=== PATIENT | female | born 1945 | race Caucasian/White ===

== ENCOUNTER → 2016-10-24 | Outpatient (CLI) | payer OTHER, MEDICARE | LOC: MRI 08:41 → RAD 09:00 | DX: M51.36 Other intervertebral disc degeneration, lumbar region (principal); R53.1 Weakness | CPT/HCPCS: 72156; 72157; 72158 ==

== ENCOUNTER 2016-12-02 14:21 | Inpatient (IN) | payer OTHER, MEDICARE ==
[~2016-12-02] VITALS: Ht 167.6 cm; Wt 105.0 kg
[~2016-12-02 14:21] MED LIST: CARDIZEM CD,CA240 MG PO; DULCOLAX10 MG PR; ELIQUIS5 MG PO; GERI-LANTA LIQ355 ML PO; GLUCOPHAGE500 MG PO; LANTUS 3 M100 UNITS1 SC; LASIX20 MG PO; LIPITOR20 MG PO; LO-DOSE ASPIRIN81 M2 PO; MAGNESIUM400 M1 PO; MECLIZINE HCL25 MG PO; METOPROLOL TART25 MG PO; MILK OF MAGN PO; NEURONTIN100 MG PO; PRILOSEC20 MG PO; SENNA8.6 MG PO; TYLENOL REGULA325 MG PO; VOLTAREN 1% GE100 GM TP
[2016-12-02 16:10] LABS: HEMATOCRIT 34.2 % (36.0-46.0); MCH 29.3 PG (29.0-34.0); MCHC 34.2 G/DL (30.0-36.0); MCV 85.7 FL (83-99); MEAN PLAT.VOLUME 10.3 uM^3 (9.5-12.4); PLATELET COUNT 276 K/uL (156-360); RBC DIS.WIDTH-SD 40.4 % (39-53); RED BLOOD COUNT 3.99 M/uL (3.80-5.20); WHITE BLOOD COUNT 8.2 K/uL (4.1-10.2)
[2016-12-02 16:19] LABS: CHLORIDE 94 mEq/L (99-109); POTASSIUM 4.3 mEq/L (3.7-5.4); SODIUM 133 mEq/L (136-147)
[2016-12-02 16:21] LABS: GLUCOSE 107 mg/dL (70-99)
[2016-12-02 16:23] LABS: ANION GAP 17 MEQ/L (2-14); TOTAL BILIRUBIN 0.3 mg/dL (0.0-1.0)
[2016-12-02 16:25] LABS: ALKALINE PHOSPHATASE 75 IU/L (3-129); GFR ESTIMATE (CALCULATED) 9 mL/min/
[2016-12-02 16:26] LABS: UREA NITROGEN (BUN) 64 mg/dL (9-23)
[2016-12-02] MEDS ORDERED: NEURONTIN100 MG PO (17:57)
[2016-12-02] MEDS ORDERED: KAYEXALATE15 GM/60 M PO (18:02)
[2016-12-02] MEDS ORDERED: MILK OF MAGN PO (18:07)
[2016-12-02] MEDS ORDERED: FLEET ENEMA-AD118 ML PR (18:09)
[2016-12-02 20:21] VITALS: BP 139/71
[2016-12-02 23:57] VITALS: BP 147/78
[2016-12-03 01:47] LABS: ADD MIUA? YES; BILIRUBIN NEGATIVE; BLOOD SMALL; COLOR STRAW ((YELLOW)); GLUCOSE (STRIP) 50; KETONES NEGATIVE; LEUKOCYTES NEGATIVE; NITRITE NEGATIVE; PROTEIN (STRIP) 30; SPECIFIC GRAVITY 1.008 (1.000-1.030); UROBILINOGEN 0.2 MG/DL (0.2-1.0)
[2016-12-03 01:49] LABS: BACTERIA NONE SEEN /HPF; EPITHELIAL CELLS RARE /HPF; MUCUS TRACE /LPF; RED BLOOD CELLS 0-5 /HPF (0-5); UCUL ADDED? NO; WHITE BLOOD CELLS 0-5 /HPF (0-5)
[2016-12-03 04:00] VITALS: BP 139/82
[2016-12-03 04:07] LABS: POINT-OF-CARE METER ID UU14174225
[2016-12-03 06:24] LABS: HEMATOCRIT 33.8 % (36.0-46.0); MCH 29.3 PG (29.0-34.0); MCHC 33.4 G/DL (30.0-36.0); MCV 87.6 FL (83-99); MEAN PLAT.VOLUME 10.3 uM^3 (9.5-12.4); PLATELET COUNT 234 K/uL (156-360); RBC DIS.WIDTH-CV 13.1 % (11.8-14.6); RBC DIS.WIDTH-SD 42.2 % (39-53); RED BLOOD COUNT 3.86 M/uL (3.80-5.20); WHITE BLOOD COUNT 8.4 K/uL (4.1-10.2)
[2016-12-03 06:46] LABS: ALKALINE PHOSPHATASE 60 IU/L (3-129); ANION GAP 12 MEQ/L (2-14); CHLORIDE 95 MEQ/L (99-109); GFR ESTIMATE (CALCULATED) 10 mL/min/; GLUCOSE 96 mg/dL (70-99); POTASSIUM 3.4 MEQ/L (3.7-5.4); SAMPLE HEMOLYSIS CHECK 0; SAMPLE ICTERIC CHECK 0; SAMPLE LIPEMIA CHECK 0; SODIUM 135 MEQ/L (136-147); TOTAL BILIRUBIN 0.3 MG/DL (0.0-1.0); UREA NITROGEN (BUN) 60 mg/dL (9-23)
[2016-12-03 07:35] VITALS: BP 102/52
[2016-12-03 07:53] LABS: POINT-OF-CARE METER ID UU14174225
[2016-12-03 11:08] VITALS: BP 131/57
[2016-12-03 15:36] VITALS: BP 100/56
[2016-12-03 20:05] VITALS: BP 145/69
[2016-12-03 20:07] LABS: INTERNAL CONTROL VALID? YES
[2016-12-03 20:41] LABS: C DIFF TOXIN NEGATIVE (NEGATIVE)
[2016-12-03 20:50] LABS: PROBE CHECK PASS; SPECIMEN PROCESSING CONTROL PASS
[2016-12-03 23:31] LABS: POINT-OF-CARE USER ID BHSKTD
[2016-12-04 00:14] VITALS: BP 156/73
[2016-12-04 03:31] VITALS: BP 121/59
[2016-12-04 06:43] LABS: EOSINOPHIL (%) 1.2 % (0-5); EOSINOPHIL COUNT 0.1 K/uL (0-0.3); HEMATOCRIT 33.6 % (36.0-46.0); IMMATURE GRANULOCYTE (%) 0.1 % (0.0-0.7); LYMPHOCYTE COUNT 2.3 K/uL (1.0-2.8); MCH 29.1 PG (29.0-34.0); MCHC 33.3 G/DL (30.0-36.0); MCV 87.3 FL (83-99); MEAN PLAT.VOLUME 10.5 uM^3 (9.5-12.4); MONOCYTE (%) 6.5 % (3-12); MONOCYTE COUNT 0.5 K/uL (0-0.8); NEUTROPHIL (%) 58.6 % (45-76); PLATELET COUNT 200 K/uL (156-360); RBC DIS.WIDTH-SD 41.2 % (39-53); RED BLOOD COUNT 3.85 M/uL (3.80-5.20); WHITE BLOOD COUNT 6.9 K/uL (4.1-10.2)
[2016-12-04 07:17] LABS: ANION GAP 10 MEQ/L (2-14); CHLORIDE 97 MEQ/L (99-109); GFR ESTIMATE (CALCULATED) 14 mL/min/; GLUCOSE 111 mg/dL (70-99); POTASSIUM 3.2 MEQ/L (3.7-5.4); SAMPLE HEMOLYSIS CHECK 0; SAMPLE ICTERIC CHECK 0; SAMPLE LIPEMIA CHECK 0; SODIUM 138 MEQ/L (136-147); UREA NITROGEN (BUN) 52 mg/dL (9-23)
[2016-12-04 07:59] VITALS: BP 124/64
[2016-12-04 11:02] VITALS: BP 128/70
[2016-12-04 12:55] LABS: POINT-OF-CARE METER ID UU14174225
[2016-12-04 15:00] VITALS: BP 150/64
[2016-12-04 16:45] LABS: POINT-OF-CARE METER ID UU14174225
[2016-12-04 19:57] VITALS: BP 159/65
[2016-12-05 04:00] VITALS: BP 140/73
[2016-12-05 06:58] LABS: EOSINOPHIL (%) 1.5 % (0-5); EOSINOPHIL COUNT 0.1 K/uL (0-0.3); HEMATOCRIT 35.3 % (36.0-46.0); IMMATURE GRANULOCYTE (%) 0.2 % (0.0-0.7); INSTRUMENT ABS NEUTROPHIL CT 3.4 K/uL; LYMPHOCYTE COUNT 2.2 K/uL (1.0-2.8); MCH 29.2 PG (29.0-34.0); MCHC 33.7 G/DL (30.0-36.0); MCV 86.7 FL (83-99); MEAN PLAT.VOLUME 10.8 uM^3 (9.5-12.4); MONOCYTE (%) 7.4 % (3-12); MONOCYTE COUNT 0.5 K/uL (0-0.8); NEUTROPHIL (%) 54.3 % (45-76); NEUTROPHIL COUNT 3.4 K/uL (1.8-6.4); PLATELET COUNT 186 K/uL (156-360); RBC DIS.WIDTH-CV 12.8 % (11.8-14.6); RBC DIS.WIDTH-SD 40.4 % (39-53); RED BLOOD COUNT 4.07 M/uL (3.80-5.20); WHITE BLOOD COUNT 6.2 K/uL (4.1-10.2)
[2016-12-05 07:23] LABS: POINT-OF-CARE METER ID UU14174225; POINT-OF-CARE USER ID BHSTSA
[2016-12-05 07:49] VITALS: BP 148/64
[2016-12-05 08:46] LABS: CHLORIDE 99 mEq/L (99-109); POTASSIUM 3.1 mEq/L (3.7-5.4); SODIUM 139 mEq/L (136-147)
[2016-12-05 08:48] LABS: GLUCOSE 111 mg/dL (70-99)
[2016-12-05 08:50] LABS: ANION GAP 12 MEQ/L (2-14)
[2016-12-05 08:52] LABS: GFR ESTIMATE (CALCULATED) 25 mL/min/
[2016-12-05 08:53] LABS: UREA NITROGEN (BUN) 40 mg/dL (9-23)
[2016-12-05 10:44] VITALS: BP 146/62
[2016-12-05 14:40] VITALS: BP 126/69
[2016-12-05 16:19] LABS: POINT-OF-CARE METER ID UU14174225
== END 2016-12-05 17:25 | DRG 683 ==
LOC: EME → EDBD 14:21 → EME 14:21 → EDOF 18:19 → 5SOUTH 18:19
PROVIDERS: Emergency Medicine; Internal Medicine; Internal Medicine Nephrology
DX: N17.9 Acute kidney failure, unspecified (principal); K21.9 Gastro-esophageal reflux disease without esophagitis; E11.9 Type 2 diabetes mellitus without complications; I48.2 Chronic atrial fibrillation; E87.5 Hyperkalemia; A08.4 Viral intestinal infection, unspecified; E87.6 Hypokalemia; R09.02 Hypoxemia; J90 Pleural effusion, not elsewhere classified; J98.11 Atelectasis; I48.0 Paroxysmal atrial fibrillation; E78.5 Hyperlipidemia, unspecified; I10 Essential (primary) hypertension; Z79.4 Long term (current) use of insulin; G61.81 Chronic inflammatory demyelinating polyneuritis; L89.321 Pressure ulcer of left buttock, stage 1; E70.331 Hermansky-Pudlak syndrome; Z79.82 Long term (current) use of aspirin; I50.9 Heart failure, unspecified; E66.9 Obesity, unspecified; Z68.37 Body mass index [BMI] 37.0-37.9, adult; Z87.891 Personal history of nicotine dependence; Z66 Do not resuscitate
CPT/HCPCS: 71010; 71250; 74176; 76770; 80053; 80069; 81003; 82948; 83630; 84132 91; 85025; 85027; 87040; 87177; 87493; 93005; 94799; 99281; 99285; J1815; J7030

== ENCOUNTER 2016-12-24 12:59 | Day surgery (SDC) | payer OTHER, MEDICARE ==
[~2016-12-24] VITALS: Ht 167.6 cm; Wt 98.9 kg
[~2016-12-24 12:59] MED LIST changes: +FLEET ENEMA-AD118 ML PR; +KAYEXALATE15 GM/60 M PO; +SENNA LAXATIVE8.6 MG PO
[2016-12-24 14:00] LABS: POINT-OF-CARE METER ID UU14174212
[2016-12-24 14:10] VITALS: BP 174/80
[2016-12-24 14:32] LABS: METH RESISTANT S AUREUS PCR POSITIVE (NEGATIVE)
[2016-12-24 14:34] LABS: PROBE CHECK PASS
[2016-12-24] MEDS ORDERED: NORCO 5/3251 TABLET PO (17:15)
[2016-12-24 18:19] VITALS: BP 137/67
== END 2016-12-24 19:29 ==
LOC: SDC 12:59
PROVIDERS: Surgery
DX: I87.8 Other specified disorders of veins (principal)
CPT/HCPCS: 71010; 82948; 87641; C1751; J0690; J2405; J3010

== ENCOUNTER 2017-02-07 16:40 | Inpatient (IN) | payer OTHER, MEDICARE ==
[~2017-02-07] VITALS: Ht 167.6 cm; Wt 97.1 kg
[~2017-02-07 16:40] MED LIST changes: +NORCO 5/3251 TABLET PO
[2017-02-07 18:00] LABS: EOSINOPHIL (%) 1.6 % (0-5); EOSINOPHIL COUNT 0.1 K/uL (0-0.3); HEMATOCRIT 37.6 % (36.0-46.0); IMMATURE GRANULOCYTE (%) 0.3 % (0.0-0.7); INSTRUMENT ABS NEUTROPHIL CT 3.7 K/uL; LYMPHOCYTE COUNT 1.4 K/uL (1.0-2.8); MCH 28.6 PG (29.0-34.0); MCHC 33.2 G/DL (30.0-36.0); MEAN PLAT.VOLUME 11.3 uM^3 (9.5-12.4); MONOCYTE (%) 8.7 % (3-12); MONOCYTE COUNT 0.5 K/uL (0-0.8); NEUTROPHIL COUNT 3.7 K/uL (1.8-6.4); PLATELET COUNT 149 K/uL (156-360); RBC DIS.WIDTH-CV 14.5 % (11.8-14.6); RBC DIS.WIDTH-SD 45.4 % (39-53); RED BLOOD COUNT 4.37 M/uL (3.80-5.20); WHITE BLOOD COUNT 5.7 K/uL (4.1-10.2)
[2017-02-07 18:08] LABS: CHLORIDE 102 mEq/L (99-109); SODIUM 140 mEq/L (136-147)
[2017-02-07 18:09] LABS: GLUCOSE 112 mg/dL (70-99)
[2017-02-07 18:11] LABS: ANION GAP 7 MEQ/L (2-14)
[2017-02-07 18:13] LABS: GFR ESTIMATE (CALCULATED) > 59 mL/min/
[2017-02-07 18:14] LABS: UREA NITROGEN (BUN) 16 mg/dL (9-23)
[2017-02-07] MEDS ORDERED: HYDROCODON-ACE1 EAC7 PO (20:39)
[2017-02-07 22:55] VITALS: BP 173/83
[2017-02-08 00:01] LABS: POINT-OF-CARE METER ID UU14162508
[2017-02-08 04:00] VITALS: BP 163/72
[2017-02-08 06:49] LABS: POINT-OF-CARE METER ID UU14162508
[2017-02-08 06:53] LABS: EOSINOPHIL (%) 2.5 % (0-5); EOSINOPHIL COUNT 0.1 K/uL (0-0.3); HEMATOCRIT 35.6 % (36.0-46.0); IMMATURE GRANULOCYTE (%) 0.2 % (0.0-0.7); INSTRUMENT ABS NEUTROPHIL CT 3.4 K/uL; LYMPHOCYTE COUNT 1.3 K/uL (1.0-2.8); MCH 29.4 PG (29.0-34.0); MCHC 34.3 G/DL (30.0-36.0); MCV 85.8 FL (83-99); MEAN PLAT.VOLUME 11.2 uM^3 (9.5-12.4); MONOCYTE (%) 6.2 % (3-12); MONOCYTE COUNT 0.3 K/uL (0-0.8); NEUTROPHIL (%) 65.2 % (45-76); NEUTROPHIL COUNT 3.4 K/uL (1.8-6.4); PLATELET COUNT 146 K/uL (156-360); RBC DIS.WIDTH-CV 14.5 % (11.8-14.6); RBC DIS.WIDTH-SD 45.8 % (39-53); RED BLOOD COUNT 4.15 M/uL (3.80-5.20); WHITE BLOOD COUNT 5.1 K/uL (4.1-10.2)
[2017-02-08 07:10] VITALS: BP 143/71
[2017-02-08 07:15] LABS: ANION GAP 7 MEQ/L (2-14); CHLORIDE 103 MEQ/L (99-109); GFR ESTIMATE (CALCULATED) > 59 mL/min/; GLUCOSE 107 mg/dL (70-99); POTASSIUM 3.7 MEQ/L (3.7-5.4); SAMPLE HEMOLYSIS CHECK 0; SAMPLE ICTERIC CHECK 0; SAMPLE LIPEMIA CHECK 0; SODIUM 140 MEQ/L (136-147); UREA NITROGEN (BUN) 14 mg/dL (9-23)
[2017-02-08 09:07] LABS: METH RESISTANT S AUREUS PCR POSITIVE (NEGATIVE)
[2017-02-08 09:15] LABS: PROBE CHECK PASS
[2017-02-08 11:40] VITALS: BP 134/69
[2017-02-08 16:00] VITALS: BP 136/69
[2017-02-08 21:58] LABS: POINT-OF-CARE METER ID UU13113747
[2017-02-09 00:28] VITALS: BP 142/68
[2017-02-09 07:00] LABS: ANION GAP 9 MEQ/L (2-14); CHLORIDE 102 MEQ/L (99-109); POTASSIUM 3.7 MEQ/L (3.7-5.4); SAMPLE HEMOLYSIS CHECK 0; SAMPLE ICTERIC CHECK 0; SAMPLE LIPEMIA CHECK 0; SODIUM 138 MEQ/L (136-147)
[2017-02-09 07:05] LABS: GFR ESTIMATE (CALCULATED) > 59 mL/min/; GLUCOSE 129 mg/dL (70-99); UREA NITROGEN (BUN) 12 mg/dL (9-23)
[2017-02-09 07:25] VITALS: BP 146/60
[2017-02-09 07:44] LABS: HEMATOCRIT 34.8 % (36.0-46.0); MCH 29.6 PG (29.0-34.0); MCHC 34.8 G/DL (30.0-36.0); MCV 85.1 FL (83-99); MEAN PLAT.VOLUME 11.2 uM^3 (9.5-12.4); PLATELET COUNT 171 K/uL (156-360); RBC DIS.WIDTH-CV 14.4 % (11.8-14.6); RBC DIS.WIDTH-SD 44.8 % (39-53); RED BLOOD COUNT 4.09 M/uL (3.80-5.20); WHITE BLOOD COUNT 4.7 K/uL (4.1-10.2)
[2017-02-09 16:16] VITALS: BP 180/76
[2017-02-09 21:24] LABS: POINT-OF-CARE METER ID UU14162508
[2017-02-10 00:14] VITALS: BP 140/62
[2017-02-10 03:49] VITALS: BP 119/60
[2017-02-10 06:34] LABS: POINT-OF-CARE METER ID UU14162508
[2017-02-10 07:30] VITALS: BP 131/75
[2017-02-10 16:08] VITALS: BP 143/72
[2017-02-10 21:34] LABS: POINT-OF-CARE METER ID UU14162508
[2017-02-11 00:30] VITALS: BP 140/64
[2017-02-11 07:31] VITALS: BP 164/85
[2017-02-11 07:53] LABS: POINT-OF-CARE METER ID UU14162508
[2017-02-11] MEDS ORDERED: MUPIROCIN15 GM TP (14:02)
== END 2017-02-11 16:07 | disposition home or self-care (01) | DRG 603 ==
LOC: EME → EDBD 16:40 → 2EAST 20:46 → EDOF 20:46 → 2EAST 22:36
PROVIDERS: Hospitalist; Internal Medicine
DX: L03.115 Cellulitis of right lower limb (principal); M86.9 Osteomyelitis, unspecified; L97.519 Non-pressure chronic ulcer of other part of right foot with unspecified severity; E11.621 Type 2 diabetes mellitus with foot ulcer; E11.40 Type 2 diabetes mellitus with diabetic neuropathy, unspecified; E11.69 Type 2 diabetes mellitus with other specified complication; E66.9 Obesity, unspecified; M25.561 Pain in right knee; I10 Essential (primary) hypertension; K21.9 Gastro-esophageal reflux disease without esophagitis; I48.0 Paroxysmal atrial fibrillation; G61.81 Chronic inflammatory demyelinating polyneuritis; Z87.891 Personal history of nicotine dependence; Z88.6 Allergy status to analgesic agent; Z79.01 Long term (current) use of anticoagulants; Z74.01 Bed confinement status; Z68.34 Body mass index [BMI] 34.0-34.9, adult; Z22.322 Carrier or suspected carrier of Methicillin resistant Staphylococcus aureus; Z99.3 Dependence on wheelchair; Z79.4 Long term (current) use of insulin
CPT/HCPCS: 73630; 73718; 80048; 80202; 82948; 85025; 85027; 85651; 86140; 87040; 87070; 87075; 87077; 87147; 87186; 87205; 87641; 93971; 99281; 99285; J0690; J2543; J3370; J7050

== ENCOUNTER 2017-05-14 12:00 | Inpatient (IN) | payer OTHER, MEDICARE ==
[~2017-05-14] VITALS: Ht 167.6 cm; Wt 90.2 kg
[~2017-05-14 12:00] MED LIST changes: -CARDIZEM CD,CA240 MG PO; +CARTIA XT240 MG PO; +HYDROCODON-ACE1 EAC7 PO; -LANTUS 3 M100 UNITS1 SC; +MUPIROCIN15 GM TP
[2017-05-14 12:36] LABS: EOSINOPHIL (%) 0.6 % (0-5); HEMATOCRIT 43.3 % (36.0-46.0); IMMATURE GRANULOCYTE (%) 0.3 % (0.0-0.7); INSTRUMENT ABS NEUTROPHIL CT 5.1 K/uL; LYMPHOCYTE COUNT 1.1 K/uL (1.0-2.8); MCHC 33.7 G/DL (30.0-36.0); MCV 85.9 FL (83-99); MONOCYTE COUNT 0.3 K/uL (0-0.8); NEUTROPHIL (%) 76.9 % (45-76); NEUTROPHIL COUNT 5.1 K/uL (1.8-6.4); PLATELET COUNT 160 K/uL (156-360); RBC DIS.WIDTH-CV 14.5 % (11.8-14.6); RBC DIS.WIDTH-SD 45.8 % (39-53); RED BLOOD COUNT 5.04 M/uL (3.80-5.20); WHITE BLOOD COUNT 6.6 K/uL (4.1-10.2)
[2017-05-14 12:53] LABS: CHLORIDE 96 mEq/L (99-109); MAGNESIUM 1.3 mg/dL (1.3-2.7); POTASSIUM 4.4 mEq/L (3.7-5.4); SODIUM 136 mEq/L (136-147)
[2017-05-14 12:55] LABS: BASE EXCESS 4.5 mEq/L (-3 to +3); BICARBONATE 33.7 mEq/L (22-26); CARBOXY HGB 2.8 % (0-5); METHEMOGLOBIN 1.2 % (0-1.5); PCO2 70 mm Hg (35-45); PO2 79 mm Hg (80-100); pH 7.29 (7.35-7.45)
[2017-05-14 12:55] LABS: GLUCOSE 157 mg/dL (70-99)
[2017-05-14 12:56] LABS: ANION GAP 12 MEQ/L (2-14)
[2017-05-14 12:56] LABS: SITE LB
[2017-05-14 12:57] LABS: COMMENTS - BLOOD GASES C+; DEVICE CANNULA; O2 FLOW 5 L/MIN; TOTAL RESP RATE 21 resp/min
[2017-05-14 12:57] LABS: TOTAL BILIRUBIN 0.3 mg/dL (0.0-1.0); TROP-I INTERPRETATION NEGATIVE; TROPONIN-I < 0.01 ng/mL (0.0-0.30)
[2017-05-14 12:59] LABS: ALKALINE PHOSPHATASE 111 IU/L (3-129); GFR ESTIMATE (CALCULATED) > 59 mL/min/
[2017-05-14 13:00] LABS: UREA NITROGEN (BUN) 18 mg/dL (9-23)
[2017-05-14 13:02] LABS: CREATINE KINASE 40 IU/L (1-294); TOTAL CK 40 IU/L (1-294)
[2017-05-14 13:08] LABS: CK-MB 1.6 ng/mL (0.0-4.9)
[2017-05-14 18:16] LABS: BASE EXCESS 6.4 mEq/L (-3 to +3); BICARBONATE 33.9 mEq/L (22-26); CARBOXY HGB 2.3 % (0-5); METHEMOGLOBIN 1.2 % (0-1.5); pH 7.36 (7.35-7.45)
[2017-05-14 18:17] LABS: COMMENTS - BLOOD GASES A+C+; FI02 21 %; PCO2 60 mm Hg (35-45); PO2 48 mm Hg (80-100); SITE RR
[2017-05-14 21:40] VITALS: BP 138/66
[2017-05-14 22:25] LABS: POINT-OF-CARE METER ID UU14174216
[2017-05-15] VITALS (7 sets, daily range): BP systolic 117–156; BP diastolic 59–78
[2017-05-15 05:18] LABS: HEMATOCRIT 40.2 % (36.0-46.0); MCH 29.4 PG (29.0-34.0); MCHC 33.8 G/DL (30.0-36.0); MEAN PLAT.VOLUME 11.3 uM^3 (9.5-12.4); PLATELET COUNT 179 K/uL (156-360); RBC DIS.WIDTH-CV 14.6 % (11.8-14.6); RBC DIS.WIDTH-SD 46.7 % (39-53); RED BLOOD COUNT 4.62 M/uL (3.80-5.20); WHITE BLOOD COUNT 9.6 K/uL (4.1-10.2)
[2017-05-15 05:40] LABS: ALKALINE PHOSPHATASE 88 IU/L (3-129); ANION GAP 7 MEQ/L (2-14); CHLORIDE 95 MEQ/L (99-109); GFR ESTIMATE (CALCULATED) > 59 mL/min/; GLUCOSE 156 mg/dL (70-99); POTASSIUM 4.2 MEQ/L (3.7-5.4); SAMPLE HEMOLYSIS CHECK 0; SAMPLE ICTERIC CHECK 0; SAMPLE LIPEMIA CHECK 0; SODIUM 134 MEQ/L (136-147); TOTAL BILIRUBIN 0.3 MG/DL (0.0-1.0); UREA NITROGEN (BUN) 20 mg/dL (9-23)
[2017-05-15 09:45] LABS: POINT-OF-CARE METER ID UU14174216
[2017-05-15 11:29] LABS: POINT-OF-CARE METER ID UU14174216
[2017-05-15] MEDS ORDERED: CERAVE453 GM TP (12:13)
[2017-05-15] MEDS ORDERED: CALMOSEPTINE O120 GM TP (12:14)
[2017-05-15] MEDS ORDERED: LANTUS 3 M100 UNITS1 SC (13:50)
[2017-05-15 16:23] LABS: POINT-OF-CARE METER ID UU14174216
[2017-05-16 04:09] VITALS: BP 132/64
[2017-05-16 07:12] VITALS: BP 140/75
[2017-05-16 09:38] LABS: HEMATOCRIT 38.9 % (36.0-46.0); MCH 30.3 PG (29.0-34.0); MCHC 34.7 G/DL (30.0-36.0); MCV 87.2 FL (83-99); MEAN PLAT.VOLUME 11.1 uM^3 (9.5-12.4); PLATELET COUNT 179 K/uL (156-360); RBC DIS.WIDTH-CV 15.1 % (11.8-14.6); RBC DIS.WIDTH-SD 48.4 % (39-53); RED BLOOD COUNT 4.46 M/uL (3.80-5.20); WHITE BLOOD COUNT 13.4 K/uL (4.1-10.2)
[2017-05-16 10:03] LABS: ANION GAP 8 MEQ/L (2-14); CHLORIDE 94 MEQ/L (99-109); GFR ESTIMATE (CALCULATED) > 59 mL/min/; SAMPLE HEMOLYSIS CHECK 1; SAMPLE ICTERIC CHECK 0; SAMPLE LIPEMIA CHECK 0; SODIUM 132 MEQ/L (136-147); UREA NITROGEN (BUN) 26 mg/dL (9-23)
[2017-05-16 10:04] LABS: GLUCOSE 252 mg/dL (70-99); POTASSIUM 5.1 MEQ/L (3.7-5.4)
[2017-05-16 11:15] VITALS: BP 132/61
[2017-05-16 11:34] LABS: POINT-OF-CARE METER ID UU13113698
[2017-05-16 15:44] VITALS: BP 131/74
[2017-05-16 16:20] LABS: POINT-OF-CARE METER ID UU13113698
[2017-05-16 20:44] LABS: POINT-OF-CARE METER ID UU14174216
[2017-05-16 20:50] VITALS: BP 152/72
[2017-05-16 23:48] VITALS: BP 132/61
[2017-05-17 04:27] VITALS: BP 132/79
[2017-05-17 05:44] LABS: HEMATOCRIT 40.1 % (36.0-46.0); MCH 30.5 PG (29.0-34.0); MCHC 34.7 G/DL (30.0-36.0); MCV 87.9 FL (83-99); MEAN PLAT.VOLUME 11.7 uM^3 (9.5-12.4); PLATELET COUNT 202 K/uL (156-360); RBC DIS.WIDTH-CV 14.7 % (11.8-14.6); RBC DIS.WIDTH-SD 47.5 % (39-53); RED BLOOD COUNT 4.56 M/uL (3.80-5.20)
[2017-05-17 06:08] LABS: ANION GAP 9 MEQ/L (2-14); CHLORIDE 95 MEQ/L (99-109); GFR ESTIMATE (CALCULATED) > 59 mL/min/; GLUCOSE 202 mg/dL (70-99); POTASSIUM 4.8 MEQ/L (3.7-5.4); SAMPLE HEMOLYSIS CHECK 0; SAMPLE ICTERIC CHECK 0; SAMPLE LIPEMIA CHECK 0; SODIUM 133 MEQ/L (136-147); UREA NITROGEN (BUN) 35 mg/dL (9-23)
[2017-05-17 07:02] VITALS: BP 138/85
[2017-05-17 07:56] LABS: POINT-OF-CARE METER ID UU14314088
[2017-05-17 10:37] LABS: INTERNAL CONTROL VALID? YES
[2017-05-17 11:28] VITALS: BP 134/97
[2017-05-17 11:52] LABS: POINT-OF-CARE METER ID UU13113698
[2017-05-17 15:51] VITALS: BP 135/71
[2017-05-17 15:53] LABS: POINT-OF-CARE METER ID UU14208750
[2017-05-17 19:25] VITALS: BP 162/83
[2017-05-17 21:49] LABS: POINT-OF-CARE METER ID UU14314084
[2017-05-17 23:45] VITALS: BP 131/75
[2017-05-18 04:51] VITALS: BP 137/70
[2017-05-18 06:40] LABS: POINT-OF-CARE METER ID UU14314084
[2017-05-18 07:54] VITALS: BP 147/67
[2017-05-18 11:32] LABS: POINT-OF-CARE METER ID UU14208750
[2017-05-18 11:46] VITALS: BP 151/67
[2017-05-18 15:43] LABS: POINT-OF-CARE METER ID UU14208750
[2017-05-18 15:44] VITALS: BP 131/67
[2017-05-18 21:38] LABS: POINT-OF-CARE METER ID UU14314084
[2017-05-19 00:30] VITALS: BP 157/83
[2017-05-19 06:31] LABS: INTER. NORMALIZED RATIO 1.2; PROTHROMBIN TIME 13.1 SEC (10.2-12.9)
[2017-05-19 06:34] LABS: PTT 30.9 SEC (25-37)
[2017-05-19 07:04] VITALS: BP 167/104
[2017-05-19 07:32] LABS: POINT-OF-CARE METER ID UU14208750; POINT-OF-CARE USER ID PUTDRM
[2017-05-19 11:15] VITALS: BP 176/100
[2017-05-19 12:40] LABS: POINT-OF-CARE METER ID UU14314084; POINT-OF-CARE USER ID PUTDRM
[2017-05-19 15:23] VITALS: BP 165/77
[2017-05-19 16:23] LABS: POINT-OF-CARE METER ID UU14208750; POINT-OF-CARE USER ID PUTDRM
[2017-05-19 22:23] LABS: POINT-OF-CARE METER ID UU14314084
[2017-05-19 23:00] VITALS: BP 166/95
[2017-05-20 06:18] LABS: POINT-OF-CARE METER ID UU14208750
[2017-05-20 07:05] VITALS: BP 156/72
[2017-05-20 11:00] VITALS: BP 152/68
[2017-05-20 11:06] LABS: HEMATOCRIT 45.7 % (36.0-46.0); MCH 30.1 PG (29.0-34.0); MCHC 34.1 G/DL (30.0-36.0); MCV 88.2 FL (83-99); MEAN PLAT.VOLUME 9.9 uM^3 (9.5-12.4); PLATELET COUNT 233 K/uL (156-360); RBC DIS.WIDTH-CV 14.3 % (11.8-14.6); RBC DIS.WIDTH-SD 46.2 % (39-53); RED BLOOD COUNT 5.18 M/uL (3.80-5.20); WHITE BLOOD COUNT 16.7 K/uL (4.1-10.2)
[2017-05-20 11:33] LABS: ALKALINE PHOSPHATASE 81 IU/L (3-129); ANION GAP 6 MEQ/L (2-14); CHLORIDE 96 MEQ/L (99-109); GFR ESTIMATE (CALCULATED) > 59 mL/min/; GLUCOSE 67 mg/dL (70-99); POTASSIUM 4.4 MEQ/L (3.7-5.4); SAMPLE HEMOLYSIS CHECK 0; SAMPLE ICTERIC CHECK 0; SAMPLE LIPEMIA CHECK 0; SODIUM 138 MEQ/L (136-147); TOTAL BILIRUBIN 0.3 MG/DL (0.0-1.0); UREA NITROGEN (BUN) 25 mg/dL (9-23)
[2017-05-20 12:22] LABS: POINT-OF-CARE METER ID UU14314084
[2017-05-20 15:47] LABS: POINT-OF-CARE METER ID UU14107333
[2017-05-20 21:31] LABS: POINT-OF-CARE METER ID UU14208750
[2017-05-21 00:54] VITALS: BP 143/79
[2017-05-21 06:30] LABS: POINT-OF-CARE METER ID UU14314084
[2017-05-21 07:09] LABS: EOSINOPHIL (%) 0.1 % (0-5); HEMATOCRIT 44.9 % (36.0-46.0); IMMATURE GRANULOCYTE (%) 0.9 % (0.0-0.7); IMMATURE GRANULOCYTE COUNT 0.1 K/uL; LYMPHOCYTE COUNT 2.6 K/uL (1.0-2.8); MCH 28.6 PG (29.0-34.0); MCHC 32.5 G/DL (30.0-36.0); MONOCYTE (%) 6.3 % (3-12); NEUTROPHIL (%) 76.1 % (45-76); PLATELET COUNT 248 K/uL (156-360); RBC DIS.WIDTH-CV 14.1 % (11.8-14.6); RBC DIS.WIDTH-SD 45.9 % (39-53); WHITE BLOOD COUNT 15.8 K/uL (4.1-10.2)
[2017-05-21 07:33] LABS: ANION GAP 7 MEQ/L (2-14); CHLORIDE 96 MEQ/L (99-109); GFR ESTIMATE (CALCULATED) > 59 mL/min/; GLUCOSE 122 mg/dL (70-99); HDL CHOLESTEROL 41 MG/DL (Desirable>=50); LDL CHOLESTEROL 35 mg/dL (Desirable<100); NON-HDL CHOLESTEROL 64 mg/dL (Desirable<160); POTASSIUM 4.4 MEQ/L (3.7-5.4); SAMPLE HEMOLYSIS CHECK 0; SAMPLE ICTERIC CHECK 0; SAMPLE LIPEMIA CHECK 0; SODIUM 138 MEQ/L (136-147); TOTAL CHOLESTEROL 105 mg/dL (Desirable<200); TRIGLYCERIDES 145 MG/DL (Normal: <150); UREA NITROGEN (BUN) 24 mg/dL (9-23)
[2017-05-21 07:38] VITALS: BP 161/74
[2017-05-21 11:38] VITALS: BP 181/84
[2017-05-21 12:02] LABS: BASE EXCESS 8.1 mEq/L (-3 to +3); BICARBONATE 40.2 mEq/L (22-26); CARBOXY HGB 2.4 % (0-5); METHEMOGLOBIN 1.8 % (0-1.5); PO2 49 mm Hg (80-100)
[2017-05-21 12:03] LABS: COMMENTS - BLOOD GASES C+; DEVICE BIPAP; O2 FLOW 15 L/MIN; PCO2 96 mm Hg (35-45); PEEP 8 CM/H20; PRES. SUPPORT 12 CM/H2O; SITE RB
[2017-05-21 12:04] LABS: pH 7.23 (7.35-7.45)
[2017-05-21 12:21] LABS: POINT-OF-CARE METER ID UU14208750
[2017-05-21 15:34] VITALS: BP 141/63
[2017-05-21 16:05] LABS: POINT-OF-CARE METER ID UU14314084
[2017-05-21 22:03] LABS: APPEARANCE CLEAR/COLORLESS
[2017-05-21 22:04] VITALS: BP 142/63
[2017-05-21 22:08] LABS: RED CELL AREA COUNTED 18; RED CELL COUNT 44 /MM^3 (0-1); RED CELL DILUTION 1; WBC AREA COUNTED 18; WBC DILUTION 1; WHITE CELL COUNT 3 /MM^3 (0-5); WHITE CELL RAW COUNT 6
[2017-05-21 22:34] LABS: CSF EOSINOPHILS 0 % (0-25); MONONUCLEAR WBC'S 100 % (50-90); POLYNUCLEAR WBC'S 0 % (0-3)
[2017-05-21 22:40] LABS: APPEARANCE (RECHECK) CLEAR/COLORLESS; CSF TUBE NUMBER (RECHECK) TUBE #1; RED CELL AREA COUNTED 18; RED CELL COUNT (RECHECK) 257 /MM^3 (0-1); RED CELL DILUTION 1
[2017-05-22 03:29] VITALS: BP 152/88
[2017-05-22 08:54] VITALS: BP 136/74
[2017-05-22 19:30] VITALS: BP 142/67
[2017-05-23 15:50] VITALS: BP 139/71
[2017-05-24 10:30] VITALS: BP 000/00
== END 2017-05-24 19:35 | DRG 166 ==
LOC: EME 12:00 → 4EAST 20:30 → EDOF 20:30 → 2EAST 20:30 → ENRESERV 20:33 → 4EAST 21:20 → ENRESERV 05-17 13:14 → 2EAST 05-17 15:15
PROVIDERS: Emergency Medicine; Hospitalist; Internal Medicine; Internal Medicine Pulmonary Disease; Physician Assistant Medical; Specialist; Student in an Organized Health Care Education/Training Program
PROC: 5A09357 Assistance with Respiratory Ventilation, Less than 24 Consecutive Hours, Continuous Positive Airway Pressure (ICD-10-PCS; principal; 2017-05-15)
PROC: 0BD88ZX Extraction of Left Upper Lobe Bronchus, Via Natural or Artificial Opening Endoscopic, Diagnostic (ICD-10-PCS; 2017-05-20)
PROC: 0B9L8ZX Drainage of Left Lung, Via Natural or Artificial Opening Endoscopic, Diagnostic (ICD-10-PCS; 2017-05-20)
PROC: 0BDJ8ZX Extraction of Left Lower Lung Lobe, Via Natural or Artificial Opening Endoscopic, Diagnostic (ICD-10-PCS; 2017-05-20)
PROC: 009U3ZX Drainage of Spinal Canal, Percutaneous Approach, Diagnostic (ICD-10-PCS; 2017-05-21)
DX: J44.0 Chronic obstructive pulmonary disease with (acute) lower respiratory infection (principal); J13 Pneumonia due to Streptococcus pneumoniae; J96.21 Acute and chronic respiratory failure with hypoxia; E70.331 Hermansky-Pudlak syndrome; G12.29 Other motor neuron disease; E87.1 Hypo-osmolality and hyponatremia; E87.2 Acidosis; G81.94 Hemiplegia, unspecified affecting left nondominant side; Z66 Do not resuscitate; Z51.5 Encounter for palliative care; J90 Pleural effusion, not elsewhere classified; J98.11 Atelectasis; T17.890A Other foreign object in other parts of respiratory tract causing asphyxiation, initial encounter; J44.1 Chronic obstructive pulmonary disease with (acute) exacerbation; I48.2 Chronic atrial fibrillation; K21.9 Gastro-esophageal reflux disease without esophagitis; E04.1 Nontoxic single thyroid nodule; E11.22 Type 2 diabetes mellitus with diabetic chronic kidney disease; N18.3 Chronic kidney disease, stage 3 (moderate); I48.0 Paroxysmal atrial fibrillation; I12.9 Hypertensive chronic kidney disease with stage 1 through stage 4 chronic kidney disease, or unspecified chronic kidney disease; E78.5 Hyperlipidemia, unspecified; E11.40 Type 2 diabetes mellitus with diabetic neuropathy, unspecified; R32 Unspecified urinary incontinence; E66.9 Obesity, unspecified; Z68.32 Body mass index [BMI] 32.0-32.9, adult; Z87.891 Personal history of nicotine dependence; Z79.01 Long term (current) use of anticoagulants; Z79.4 Long term (current) use of insulin; Z88.5 Allergy status to narcotic agent; Z79.84 Long term (current) use of oral hypoglycemic drugs
CPT/HCPCS: 31720; 36600; 71010; 71250; 76536; 76604; 80048; 80053; 80061; 81003; 82550; 82553; 82607; 82746; 82803; 82945; 82945 91; 82948; 83520 90; 83605; 83615 91; 83735; 83880; 84157; 84484; 85025; 85027; 85610; 85730; 87040; 87070; 87077; 87116; 87147; 87205; 87206; 87449; 88108; 89051; 92610 GN; 93005; 93306; 94010; 94640; 94640 76; 94660; 94667; 94668; 94799; 96365; 96366; 99202; 99281; 99285; J0696; J1566; J1815; J2060; J2250; J2270; J2405; J2930; J3010; J7050; J7512; J7608; S0028